=== PATIENT | female | born 1935 | race Caucasian/White ===

== ENCOUNTER → 2017-01-23 | Outpatient (CLI) | payer MEDICARE ==
[2016-05-17 05:36] VITALS: BP 144/77
[~2017-01-23] MED LIST: ALLO100T PO; AMLO5TAB2 PO; AMOX500C PO; APIX5TAB3 PO; AZIT250T PO; AZIT250T6 PO; BIMA2.5D EACHEYE; BRIM5DRO2 OP; BRIM5DRO3 LEFTEYE; BRIM5DRO4 OU; CARV12.5 PO; CARV6.25 PO; CHOL2000 PO; CLOT45CR4 VG; CYCL2DRO3 LEFTEYE; Clotrimazole VG; ESTR30CR VG; FENT1PAT15 TD; FURO20TA3 PO; FURO40TA4 PO; Furosemide PO; GLIP-112 PO; GLIP10TA13 PO; IBUP400T18 PO; INSU100I17 SQ; INSU100I27 SQ; ISOS30TA PO; Ibuprofen PO; Ipratropium/Albuterol Sulfate NEB; LEVO175T2 PO; LIDO700A27 TP; LIDO700A4 TD; LISI2.5T PO; LOSA25TA4 PO; MAGN400T3 PO; METF500T4 PO; NITR0.4T SL; PANT40TA3 PO; POTA10CA PO; POTA10TA10 PO; POTA10TA12 PO; POTA10TA5 PO; POTA20TA12 PO; POTA20TA84 PO; PRED1DRO RIGHTEYE; PRED5TAB PO; SIMV10TA3 PO; SIMV20TA3 PO; SPIR25TA3 PO; TIMO5DRO5 EACHEYE; TRAM50TA PO; ZOLP5TAB PO; ZOLP5TAB5 PO
[2017-01-23 12:02] LABS: CALCIUM 9.1 mg/dL (8.5-10.1); CREATININE 1.1 mg/dL (0.6-1.0); GFR 47.6; POTASSIUM 3.8 mmol/L (3.5-5.1)
== END | disposition home or self-care (01) ==
LOC: LAB 11:02
PROVIDERS: ATTEND Internal Medicine Cardiovascular Disease
DX: I42.9 Cardiomyopathy, unspecified (principal)
CPT/HCPCS: 36415; 80048; 83880

== ENCOUNTER 2017-02-12 12:37 | Observation (INO) | payer MEDICARE ==
[~2017-02-12] VITALS: Ht 160 cm; Wt 74.6 kg
--- NOTE | 2017-02-12 12:25 | NUR ---
Pt arrived via wheelchair accompanied by her spouse,for direct admission from Dr. Santacruz's office for acute respiratory failure. Pt initial complaint is increased weakness/fatigue, SOA, no appetite and issues with diabetes over the past 1-2 months. Initial assessment completed, pt changed into a hospital gown. Pt is A/O x4 but has intermittent confusion and is currently tearful. Rates pain 6/10 but states "it is not actual pain, it is more weakness and confusion" c/o having bladder infection symptoms. Pt has no open areas noted, is legally blind in left eye and wears bilateral hearing aides. History of diabetes, A-fib, TIA, stroke and bilateral cataracts. Pt has a pacemaker. States that pneumonia and flu are up to date but unknown on last tetanus. LBM was 02/12 and pt is typical every other day, small bowel movements. Vitals were obtained and pt assisted into bed. Will obtain orders and continue to monitor.
[2017-02-12] MEDS ORDERED: DEXTROSE 50% 25 GM / 50ML DISP.SYRIN. IV PRN (13:30)
[2017-02-12 13:35] LABS: BASO # 0.1 x10^3/uL (0.0-0.2); BASO % 1 % (0-3); EOS # 0.3 x10^3/uL (0.0-0.7); EOS % 3 % (0-3); HEMATOCRIT 26.4 % (36.0-47.0); HEMOGLOBIN 8.5 g/dL (12.0-15.5); LYMPH # 0.7 x10^3/uL (1.0-4.8); LYMPH % 10 % (24-48); MEAN CORPUSCULAR HEMOGLOBIN 33 pg (25-35); MEAN CORPUSCULAR HGB CONC 32 g/dL (31-37); MEAN CORPUSCULAR VOLUME 104 fL (79-100); MONO # 0.8 x10^3/uL (0.0-1.1); MONO % 10 % (0-9); NEUT # 5.8 x10^3uL (1.8-7.7); NEUT % 76 % (31-73); PLATELET COUNT 255 x10^3/uL (140-400); RED BLOOD COUNT 2.55 x10^6/uL (3.50-5.40); RED CELL DISTRIBUTION WIDTH 16.3 % (11.5-14.5); WHITE BLOOD COUNT 7.7 x10^3/uL (4.0-11.0)
--- NOTE | 2017-02-12 13:46 | RAD ---
Indication: Shortness of breath. Time of exam 1428 hours. Correlation is made with prior study from 05/14/2016. The heart size is stable. Cardiac defibrillator remains in place. No infiltrate or failure is detected. No effusion or pneumothorax is seen. Kyphoplasty changes lower thoracic spine are noted. Impression: No acute cardiopulmonary process is detected.
[2017-02-12 13:56] LABS: ALBUMIN 3.2 g/dL (3.4-5.0); ALBUMIN/GLOBULIN RATIO 0.8 (1.0-1.7); CALCIUM 8.7 mg/dL (8.5-10.1); CREATININE 1.3 mg/dL (0.6-1.0); GFR 39.1
[2017-02-12 15:27] VITALS: BP 96/68
[2017-02-12 15:37] VITALS: BP 120/68
[2017-02-12] MEDS: IPRATRPIUM/ALBUTEROL 0.5/2.5MG 3 ML NEBU. NEB SCH ×2 (16:00→19:52)
--- NOTE | 2017-02-12 16:40 | NUR ---
Pt SpO2 is down to 88% on room air, initiated O2 at 2L/NC and will continue to monitor. Pt would like to have something to help her sleep this evening, notified.
[2017-02-12] MEDS: INSULIN ASPART 300 UNITS/3 ML INSULN.PEN SQ SCH ×2 (17:15→20:49)
[2017-02-12] MEDS ORDERED: SIMV10TA3 PO (17:52)
[2017-02-12] MEDS ORDERED: SPIR25TA3 PO (17:52)
[2017-02-12] MEDS ORDERED: CLOTRIMAZOLE 1% VAGINAL CREAM 45GM TUBE. VG PRN (18:00)
[2017-02-12 18:43] VITALS: BP 115/69
[2017-02-12] MEDS: APIXABAN 5 MG TABLET. PO SCH (20:48)
[2017-02-12] MEDS: SIMVASTATIN 10 MG TABLET PO SCH (20:48)
[2017-02-12] MEDS: MAGNESIUM OXIDE 400 MG TABLET PO SCH (20:48)
[2017-02-12] MEDS: TIMOLOL 0.5% OPHTH SOLUTION 5ML BOTTLE. OU SCH (20:48)
[2017-02-12] MEDS: BRIMONIDINE 0.2% OPHTH SOLUTION 5ML BOTTLE. OU SCH (20:48)
[2017-02-12] MEDS: LATANOPROST 0.005% OPHTH SOLUTION 2.5ML BOTTLE. OU SCH (20:48)
[2017-02-12] MEDS: CARVEDILOL 6.25 MG TABLET PO SCH (20:49)
[2017-02-12] MEDS: INSULIN DETEMIR 300 UNITS/3 ML INSULN.PEN. SQ SCH (20:50)
[2017-02-12] MEDS: NYSTATIN TOPICAL POWDER 15GM BOTTLE. TP SCH (21:22)
[2017-02-12] MEDS: ZOLPIDEM 5 MG TABLET. PO PRN (21:22)
[2017-02-12 22:23] VITALS: BP 111/65
[2017-02-12 22:49] LABS: BILIRUBIN,URINE NEG (NEG); CLARITY,URINE CLOUDY; COLOR,URINE AMBER; GLUCOSE,URINE NEG (NEG); NITRITE,URINE NEG (NEG); UROBILINOGEN,URINE 0.2 mg/dL (0.2 mg/dL); WBC,URINE 20-40 /HPF (0-4)
[2017-02-12 22:50] LABS: BACTERIA,URINE MOD /HPF (0-FEW); SQUAMOUS EPITHELIAL CELL,UR MANY /LPF
[2017-02-12 22:51] LABS: HYALINE CASTS, URINE MOD /HPF
[2017-02-13 05:17] VITALS: BP 106/64
[2017-02-13] MEDS: IPRATRPIUM/ALBUTEROL 0.5/2.5MG 3 ML NEBU. NEB SCH ×4 (05:18→20:42)
[2017-02-13] MEDS: LEVOTHYROXINE 175 MCG TABLET PO SCH (06:03)
[2017-02-13 06:21] LABS: BASO # 0.1 x10^3/uL (0.0-0.2); BASO % 1 % (0-3); EOS # 0.5 x10^3/uL (0.0-0.7); EOS % 8 % (0-3); HEMATOCRIT 24.1 % (36.0-47.0); HEMOGLOBIN 7.8 g/dL (12.0-15.5); LYMPH # 1.3 x10^3/uL (1.0-4.8); LYMPH % 19 % (24-48); MEAN CORPUSCULAR HEMOGLOBIN 33 pg (25-35); MEAN CORPUSCULAR HGB CONC 33 g/dL (31-37); MEAN CORPUSCULAR VOLUME 102 fL (79-100); MONO # 0.8 x10^3/uL (0.0-1.1); MONO % 12 % (0-9); NEUT % 60 % (31-73); PLATELET COUNT 229 x10^3/uL (140-400); RED BLOOD COUNT 2.36 x10^6/uL (3.50-5.40); RED CELL DISTRIBUTION WIDTH 15.7 % (11.5-14.5); WHITE BLOOD COUNT 6.7 x10^3/uL (4.0-11.0)
[2017-02-13 06:22] LABS: CALCIUM 8.5 mg/dL (8.5-10.1); POTASSIUM 4.1 mmol/L (3.5-5.1)
[2017-02-13] MEDS: INSULIN ASPART 300 UNITS/3 ML INSULN.PEN SQ SCH ×4 (07:30→21:00)
[2017-02-13] MEDS: TIMOLOL 0.5% OPHTH SOLUTION 5ML BOTTLE. OU SCH ×2 (08:09→20:43)
[2017-02-13] MEDS: BRIMONIDINE 0.2% OPHTH SOLUTION 5ML BOTTLE. OU SCH ×2 (08:09→20:43)
[2017-02-13] MEDS: SPIRONOLACTONE 25 MG TABLET PO SCH (08:09)
[2017-02-13] MEDS: FUROSEMIDE 40 MG TABLET PO SCH ×2 (08:10→13:00)
[2017-02-13] MEDS: MAGNESIUM OXIDE 400 MG TABLET PO SCH ×3 (08:10→20:43)
[2017-02-13] MEDS: CHOLECALCIFEROL (VITAMIN D3) 1,000 UNIT TABLET PO SCH (08:10)
[2017-02-13] MEDS: APIXABAN 5 MG TABLET. PO SCH ×2 (08:10→20:43)
[2017-02-13] MEDS: CARVEDILOL 6.25 MG TABLET PO SCH ×2 (08:11→20:44)
[2017-02-13] MEDS: INSULIN DETEMIR 300 UNITS/3 ML INSULN.PEN. SQ SCH ×2 (08:17→20:56)
[2017-02-13] MEDS: NYSTATIN TOPICAL POWDER 15GM BOTTLE. TP SCH ×2 (08:19→21:00)
[2017-02-13] MEDS: levoFLOXacin 250 MG TABLET PO SCH (13:00)
[2017-02-13 14:35] VITALS: BP 101/64
--- NOTE | 2017-02-13 16:18 | EKG ---
[address] [address] Test Date: 2017-02-13 Test Time: 16:17:10 Pat Name: MEGHANN NELSON Department: Room: 124 A Gender: F [employer] Worker: : [id number] Requested By: ARLET ALTAMIRANO Order Number: [id number] Reading MD: Measurements Intervals [place] Rate: 78 P: 0 AR: 156 QRS: -14 QRSD: 96 T: 12 QT: 374 QTc: 430 Interpretive Statements SINUS RHYTHM LEFTWARD AXIS NO SPECIFIC ECG ABNORMALITIES RI6.01 Unconfirmed report Compared to ECG 01/28/2015 21:36:53 Left-axis deviation now present
--- NOTE | 2017-02-13 16:30 | NUR ---
Pt c/o of stationary right-side CP 10/26- ordered stat EKG - EKG indicates no abnormalities- Dr. Santacruz notified- orders for CXR and tylenol for pain- orders initiated, will continue to monitor pt
[2017-02-13 16:44] VITALS: BP 107/53
--- NOTE | 2017-02-13 17:27 | RAD ---
Portable AP upright view CXR: Clinical indications: Severe right-sided chest pain. Comparison: February 12, 2017. 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 No new lung infiltrate or pleural effusion or pulmonary edema or lung mass or pneumothorax is seen. The heart size, pulmonary vasculature, mediastinum and both joaquin are stable. Pacemaker is again noted. 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 There is a loose body within the superior aspect of the left glenohumeral joint which measures 13 mm. Smaller loose body is present here as well. Impression: No acute radiographic abnormality.. See discussion above.
[2017-02-13] MEDS: ACETAMINOPHEN 500 MG TABLET PO PRN ×2 (17:40→22:42)
[2017-02-13 18:49] VITALS: BP 121/69
[2017-02-13] MEDS: LATANOPROST 0.005% OPHTH SOLUTION 2.5ML BOTTLE. OU SCH (20:43)
[2017-02-13] MEDS: SIMVASTATIN 10 MG TABLET PO SCH (20:44)
[2017-02-13] MEDS: ZOLPIDEM 5 MG TABLET. PO PRN (20:44)
[2017-02-14 05:24] VITALS: BP 104/47
[2017-02-14] MEDS: IPRATRPIUM/ALBUTEROL 0.5/2.5MG 3 ML NEBU. NEB SCH ×2 (05:32→11:23)
--- NOTE | 2017-02-14 05:48 | NUR ---
Nursing: Pt c/o "not feeling well" when assisting to bathroom. Skin clammy, diaphoretic. FSBS checked, 71. Pt states that is "low for me." Given antonio crackers and orange juice per request.
[2017-02-14] MEDS: levoFLOXacin 250 MG TABLET PO SCH (06:11)
[2017-02-14] MEDS: LEVOTHYROXINE 175 MCG TABLET PO SCH (06:11)
[2017-02-14 06:27] LABS: BASO # 0.1 x10^3/uL (0.0-0.2); BASO % 1 % (0-3); EOS # 0.6 x10^3/uL (0.0-0.7); EOS % 10 % (0-3); HEMATOCRIT 24.8 % (36.0-47.0); HEMOGLOBIN 8.1 g/dL (12.0-15.5); LYMPH # 1.1 x10^3/uL (1.0-4.8); LYMPH % 19 % (24-48); MEAN CORPUSCULAR HEMOGLOBIN 33 pg (25-35); MEAN CORPUSCULAR HGB CONC 33 g/dL (31-37); MEAN CORPUSCULAR VOLUME 101 fL (79-100); MONO # 0.7 x10^3/uL (0.0-1.1); MONO % 12 % (0-9); NEUT # 3.5 x10^3uL (1.8-7.7); NEUT % 59 % (31-73); PLATELET COUNT 242 x10^3/uL (140-400); RED BLOOD COUNT 2.46 x10^6/uL (3.50-5.40); RED CELL DISTRIBUTION WIDTH 15.3 % (11.5-14.5)
[2017-02-14 06:33] LABS: CALCIUM 8.5 mg/dL (8.5-10.1); CREATININE 1.2 mg/dL (0.6-1.0); GFR 42.9; POTASSIUM 3.9 mmol/L (3.5-5.1)
[2017-02-14] MEDS: INSULIN ASPART 300 UNITS/3 ML INSULN.PEN SQ SCH ×2 (07:30→11:30)
[2017-02-14] MEDS ORDERED: FERROUS SULFATE 325 MG TABLET PO SCH (08:00)
[2017-02-14] MEDS ORDERED: LEVO250T25 PO (08:58)
[2017-02-14] MEDS ORDERED: LEVO25TA4 PO (08:58)
[2017-02-14] MEDS: NYSTATIN TOPICAL POWDER 15GM BOTTLE. TP SCH (09:00)
[2017-02-14] MEDS ORDERED: NYST60PO TP (09:01)
[2017-02-14] MEDS ORDERED: FERR325T72 PO (09:01)
[2017-02-14] MEDS: CARVEDILOL 6.25 MG TABLET PO SCH (09:40)
[2017-02-14] MEDS: APIXABAN 5 MG TABLET. PO SCH (09:41)
[2017-02-14] MEDS: CHOLECALCIFEROL (VITAMIN D3) 1,000 UNIT TABLET PO SCH (09:42)
[2017-02-14] MEDS: FUROSEMIDE 40 MG TABLET PO SCH (09:42)
[2017-02-14] MEDS: TIMOLOL 0.5% OPHTH SOLUTION 5ML BOTTLE. OU SCH (09:43)
[2017-02-14] MEDS: BRIMONIDINE 0.2% OPHTH SOLUTION 5ML BOTTLE. OU SCH (09:43)
[2017-02-14] MEDS: MAGNESIUM OXIDE 400 MG TABLET PO SCH (09:43)
[2017-02-14] MEDS: SPIRONOLACTONE 25 MG TABLET PO SCH (09:43)
[2017-02-14] MEDS: INSULIN DETEMIR 300 UNITS/3 ML INSULN.PEN. SQ SCH (09:53)
[2017-02-14 10:32] VITALS: BP 147/60
[2017-02-14 14:49] VITALS: BP 111/60
--- NOTE | 2017-02-14 15:16 | NUR ---
Pt discharge information discussed and copies of sliding scale insulin protocol given to pt. Assisted pt to wheelchair and to private vehicle for discharge at this time.
== END 2017-02-14 15:00 | disposition home health service (06) ==
LOC: INTOOBSV 12:37 → 1 SOUTH 12:37
PROVIDERS: ADMIT Family Medicine; ATTEND Family Medicine
DX: J80 Acute respiratory distress syndrome (principal); R09.02 Hypoxemia; E11.9 Type 2 diabetes mellitus without complications; I10 Essential (primary) hypertension; M10.9 Gout, unspecified; Z86.73 Personal history of transient ischemic attack (TIA), and cerebral infarction without residual deficits
CPT/HCPCS: 36415; 71010; 71020; 80048; 80053; 81001; 82550; 82728; 82947; 83540; 83550; 83880; 84443; 84484; 85027; 87086; 93005; 94250; 94640; 96372; 97161; 97166; G0378; G0379; J1815; J7620